=== PATIENT | female | born 1945 | race African-American/Black ===

== ENCOUNTER 2016-06-29 13:38 | Outpatient (CLI) | payer OTHER, MEDICARE | END 2016-06-29 13:40 | LOC: NEPHRO 13:38 | PROVIDERS: ATTEND Internal Medicine Nephrology | DX: N18.9 Chronic kidney disease, unspecified (principal); I10 Essential (primary) hypertension | CPT/HCPCS: 99213 ==

== ENCOUNTER 2017-02-01 15:37 | Outpatient (CLI) | payer OTHER, MEDICARE | END 2017-02-01 15:40 | LOC: NEPHRO 15:37 | PROVIDERS: ATTEND Internal Medicine Nephrology | DX: E11.9 Type 2 diabetes mellitus without complications (principal); R80.9 Proteinuria, unspecified; I10 Essential (primary) hypertension | CPT/HCPCS: G0463 ==

== ENCOUNTER 2018-01-24 11:11 | Outpatient (CLI) | payer OTHER, MEDICARE | END 2018-01-24 11:13 | LOC: CARD 11:11 | PROVIDERS: ATTEND Internal Medicine Cardiovascular Disease | DX: R07.9 Chest pain, unspecified (principal) ==

== ENCOUNTER 2018-08-01 14:25 | Outpatient (CLI) | payer OTHER, MEDICARE | END 2018-08-01 14:27 | LOC: NEPHRO 14:25 | PROVIDERS: ATTEND Internal Medicine Nephrology | DX: I12.9 Hypertensive chronic kidney disease with stage 1 through stage 4 chronic kidney disease, or unspecified chronic kidney disease (principal); E11.22 Type 2 diabetes mellitus with diabetic chronic kidney disease; N18.9 Chronic kidney disease, unspecified; N17.9 Acute kidney failure, unspecified; Z79.4 Long term (current) use of insulin | CPT/HCPCS: G0463 ==